=== PATIENT | male | born 1980 | race Caucasian/White ===

== ENCOUNTER 2018-01-17 13:00 | Emergency (ER) | payer OTHER ==
[~2018-01-17] VITALS: Ht 180.3 cm; Wt 72.6 kg
--- NOTE | ~2018-01-17 | EKG ---
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
[2018-01-17 13:48] LABS: ABSOLUTE NEUTROPHILS 7.1 thou/uL (1.4-8.2); BASOPHILS 0.8 % (0.0-2.0); EOSINOPHILS 3.6 % (0.0-3.0); HEMATOCRIT 36.3 % (42.0-52.0); HEMOGLOBIN 12.7 gm/dL (14.0-18.0); LYMPHOCYTES 17.4 % (24.0-44.0); MCH 31.1 pg (26.0-34.0); MCV 88.7 fL (80.0-100.0); MONOCYTES 7.5 % (1.0-8.0); PLATELET COUNT 241 thou/uL (150-400); POLYS 70.7 % (36.0-66.0); RDW 13.6 % (10.5-14.5); WBC 10.1 thou/uL (4.0-11.0)
[2018-01-17 13:55] LABS: CALCIUM 8.6 mg/dL (8.5-10.1); POTASSIUM 3.6 mmol/L (3.5-5.1)
[2018-01-17 14:04] LABS: TROPONIN-I 0.06 ng/mL (<0.06)
[2018-01-17 15:20] VITALS: BP 112/69
== END 2018-01-17 15:25 | disposition home or self-care (01) ==
LOC: ER 13:00
PROVIDERS: Emergency Medicine
DX: T40.1X1A Poisoning by heroin, accidental (unintentional), initial encounter (principal); Y92.89 Other specified places as the place of occurrence of the external cause